=== PATIENT | male | born 1950 | race Caucasian/White ===

== ENCOUNTER 2017-06-02 15:00 | Emergency (ER) | payer MEDICARE ==
[~2017-06-02] VITALS: Ht 175.3 cm; Wt 91.4 kg
[2017-06-02 15:03] VITALS: BP 146/79
== END 2017-06-02 16:44 | disposition home or self-care (01) ==
LOC: ED 16:34
DX: S16.1XXA Strain of muscle, fascia and tendon at neck level, initial encounter (principal); S00.11XA Contusion of right eyelid and periocular area, initial encounter; S60.511A Abrasion of right hand, initial encounter; J44.9 Chronic obstructive pulmonary disease, unspecified; W19.XXXA Unspecified fall, initial encounter; Y93.89 Activity, other specified; Y92.89 Other specified places as the place of occurrence of the external cause; Y99.8 Other external cause status
CPT/HCPCS: 70450; 70486; 72125; 99284

== ENCOUNTER → 2017-06-23 | Outpatient (CLI) | payer MEDICARE | END | disposition home or self-care (01) | LOC: CFH 11:59 | PROVIDERS: ATTEND Nurse Practitioner | DX: R91.1 Solitary pulmonary nodule (principal); J43.8 Other emphysema; J92.9 Pleural plaque without asbestos; I25.10 Atherosclerotic heart disease of native coronary artery without angina pectoris; I70.0 Atherosclerosis of aorta; I51.7 Cardiomegaly; K80.20 Calculus of gallbladder without cholecystitis without obstruction; N62 Hypertrophy of breast | CPT/HCPCS: 71250 ==

== ENCOUNTER 2018-01-04 10:41 | Emergency (ER) | payer MEDICARE ==
[~2018-01-04] VITALS: Ht 172.7 cm; Wt 90.7 kg
[2018-01-04 10:42] VITALS: BP 111/71
[2018-01-04] MEDS ORDERED: DIPH,PERTUSS(ACELL),TET VAC/PF 0.5 ML IM-VACC ONE ×2 (11:27→11:30)
[2018-01-04] MEDS ORDERED: BACITRACIN ZINC OINT 500U/GM, 0.9 GM ONE (11:43)
== END 2018-01-04 12:11 | disposition home or self-care (01) ==
LOC: ED 12:00
DX: S00.81XA Abrasion of other part of head, initial encounter (principal); W01.0XXA Fall on same level from slipping, tripping and stumbling without subsequent striking against object, initial encounter; Y93.89 Activity, other specified; Y92.410 Unspecified street and highway as the place of occurrence of the external cause; Y99.8 Other external cause status; J44.9 Chronic obstructive pulmonary disease, unspecified
CPT/HCPCS: 70450; 70486; 90471; 90715

== ENCOUNTER → 2019-01-11 | Outpatient (CLI) | payer MEDICARE, OTHER | END | disposition home or self-care (01) | LOC: RAD 11:42 | PROVIDERS: ATTEND Family Medicine | DX: M25.78 Osteophyte, vertebrae (principal); M12.88 Other specific arthropathies, not elsewhere classified, other specified site; M24.659 Ankylosis, unspecified hip; M48.061 Spinal stenosis, lumbar region without neurogenic claudication | CPT/HCPCS: 72110 ==

== ENCOUNTER → 2019-02-19 | Outpatient (CLI) | payer OTHER | END | disposition home or self-care (01) | LOC: CFH 11:56 | PROVIDERS: ATTEND Family Medicine | DX: M48.061 Spinal stenosis, lumbar region without neurogenic claudication (principal); M47.26 Other spondylosis with radiculopathy, lumbar region; I10 Essential (primary) hypertension | CPT/HCPCS: 72148 ==